=== PATIENT | female | born 2000 | race Two or more races ===

== ENCOUNTER 2024-07-25 20:29 | Observation (INO) | payer OTHER ==
[~2024-07-25] VITALS: Ht 157.5 cm; Wt 66.7 kg
== END 2024-07-25 21:38 | disposition home or self-care (01) ==
LOC: LDRP 20:29
PROVIDERS: ADMIT Obstetrics & Gynecology; ATTEND Obstetrics & Gynecology
DX: O26.892 Other specified pregnancy related conditions, second trimester (principal); R10.9 Unspecified abdominal pain; Z3A.22 22 weeks gestation of pregnancy
CPT/HCPCS: 59025; 81002; 94760; G0378